=== PATIENT | female | born 1975 | race Caucasian/White ===

== ENCOUNTER 2020-10-06 05:59 | Inpatient (IN) ==
--- NOTE | 2020-10-02 10:46 | Anesthesiology Consultation ---
Date of Service October 02, 2020 Assessment & Plan (1) Encounter for pre-operative examination: - COVID screening: Per assessment on 10/02: Travel screen negative, no known COVID-19 positive contacts or current COVID-19 related symptoms. Preop COVID test done 10/02 ([place])- pending. - Leukocytosis: WBC significantly elevated at 26.76 on 10/01. Suspected by [place] ER that leukocytosis 2/2 recent steroid use for neck pain. Surgeon ordered recheck CBC 10/02 with persistent WBC elevation. Surgeon's office made aware and will be forwarding report to PCP for continuity of care. - C-spine imaging: C-spine MRI done 10/01 with findings noted in the "testing section." Patient had c-spine x-[facility] done 10/02 at [facility] but results still pending- anesthesiologist to review AM DOS. Chart Review Chart Review: Acceptable Risk for Surgery (pending evaluation AM DOS) and Patient NOT seen in Pre Admission Testing History Surgery Operation Date: 10/06/20 07:30 Proposed Procedures p Anterior Cervical Discectomy Fusion C4-C5, C5-C6, Autograft, Allograft, Spinal Cord Monitoring - Minal Hall MD Height/Weight Height: 5 ft 4 in Weight: 79.379 kg Allergies Allergy/AdvReac Type Severity Reaction Status Date / Time latex Allergy Mild Rash Verified 10/02/20 10:15 Iodinated Contrast Media AdvReac Severe Hives, Unverified 10/02/20 10:37 tongue swelling adhesive AdvReac Mild Rash Verified 10/02/20 10:15 GOLD AdvReac Mild Rash Uncoded 10/02/20 10:15 Medications Home Medications Medication Instructions Recorded Confirmed Last Taken albuterol sulfate 90 mcg/actuation 2 inh INHALATION Q6H PRN 10/02/20 10/02/20 Unknown breath activated powder inhaler cholecalciferol (vitamin D3) 50 50 mcg PO TID 10/02/20 10/02/20 Unknown mcg (2,000 unit) tablet clindamycin phosphate 1 % topical 1 applic TOPICAL BID 10/02/20 10/02/20 Unknown gel esomeprazole magnesium 40 mg 40 mg PO QAM 10/02/20 10/02/20 Unknown capsule,delayed release montelukast 10 mg tablet 10 mg PO QAM 10/02/20 10/02/20 Unknown multivitamin 1 tab PO QAM 10/02/20 10/02/20 Unknown oxycodone-acetaminophen 5 mg-325 1 tab PO Q4H PRN #15 tab 10/02/20 10/02/20 Unknown mg tablet trazodone 50 - 100 mg PO HS 10/02/20 10/02/20 Unknown venlafaxine 75 mg capsule,extended 75 mg PO QAM 10/02/20 10/02/20 Unknown release 24 hr Past Medical History Medical History Anxiety Asthma Bladder prolapse GERD (gastroesophageal reflux disease) Herniated cervical disc History of kidney stones Hx of endometriosis Migraine Restless leg syndrome Seasonal allergies Temporomandibular joint disorder Jaw locking x1 episode (after dental appt) Past Family History Family History Other No family history of adverse response to anesthesia Past Surgical History Surgical History History of colonoscopy History of cystoscopy History of dilatation and curettage Multiple History of esophagogastroduodenoscopy (EGD) History of hysterectomy History of laparoscopy History of lithotripsy History of sinus surgery x3 [place] teeth removed Social History Smoking Status: Former smoker tobacco type: cigarettes and e-cigarettes (vaping (current)) Do You Dip or Chew Tobacco: No Smoking End Date: Quit 7 years ago Hx Alcohol Use: No Hx Substance Use: No substance use type: does not use Lab Results Anesthesia Preop Results Results Anesthesia Widget: WBC 25.40 K/uL (4.8-10.8) H 10/02/20 Hgb 14.3 g/dL (12.0-16.0) 10/02/20 Hct 43.7 % (37-47) 10/02/20 Plt 323 K/uL (130-400) 10/02/20 Na 138 mmol/L (136-145) 10/01/20 K 4.6 mmol/L (3.5-5.1) 10/01/20 Cl 107 mmol/L (98-107) 10/01/20 CO2 25 mmol/L (21-32) 10/01/20 BUN 13 mg/dl (7-18) 10/01/20 Creat 1.02 mg/dl (0.6-1.2) 10/01/20 Glucose Level 119 mg/dl (70-99) H 10/01/20 Blood Type O Positive 10/02/20 Antibody Screen NEGATIVE 10/02/20 Lab Comments: Leukocytosis: WBC significantly elevated at 26.76 on 10/01. Suspected by [place] ER that leukocytosis 2/2 recent steroid use for neck pain. Surgeon ordered recheck CBC 10/02 with persistent WBC elevation. Surgeon's office made aware and will be forwarding report to PCP for continuity of care. Slight hemolysis: on 10/01 BMP- at anesthesiologist discretion AM DOS if recheck needed. Testing Other Testing C-spine MRI (10/01/20): C2-3: There is no evidence of disc bulge or focal herniation. There is no spinal or foraminal stenosis. C3-4: Mild central canal narrowing. Bilateral neuroforamina are patent. C4-5: Posterior osteophytes. Moderate stenosis of the central canal possible sev ere stenosis of bilateral neuroforamina. C5-6 :Posterior osteophytes. Moderate to severe stenosis of the central canal and bilateral neuroforamina. C6-7: Mild stenosis of the central canal and bilateral neuroforamina. C7-T1: There is no evidence of disc bulge or focal herniation. There is no evidence of spinal or foraminal stenosis. No evidence of abnormal enhancement after intravenous contrast administration. Impression: Multilevel degenerative changes as detailed above with central canal stenosis by posterior osteophytes and disc bulges. Evaluation is limited due to motion artifact. No evidence of abnormal enhancement after intravenous contrast administration.
[2020-10-06] MEDS ORDERED: LR 15ML/HR IV SCH (06:00)
[2020-10-06] MEDS ORDERED: ceFAZolin 2000MG 2,000 MG/15 ML SYR IV SCH (06:00)
[2020-10-06] MEDS ORDERED: LR 60ML/HR IV SCH (06:00)
[2020-10-06] MEDS ORDERED: MIDAZOLAM HCL 1 MG/ML 2ML VIAL ONE (06:49)
[2020-10-06] MEDS ORDERED: fentaNYL citrate 100 MCG/2 ML VIAL ONE ×2 (06:50→10:04)
[2020-10-06] MEDS ORDERED: PROPOFOL IV EMULSION 10 MG/ML 100 ML VIAL IV ONE ×2 (06:51→06:57)
[2020-10-06] MEDS ORDERED: REMIFENTANIL HCL 1 MG VIAL ONE ×4 (06:51→10:34)
[2020-10-06] MEDS ORDERED: PROPOFOL IV EMULSION 10 MG/ML 20 ML VIAL IV ONE (06:51)
[2020-10-06] MEDS ORDERED: SUCCINYLCHOLINE CHLORIDE 20 MG/ML 10 ML VIAL IV ONE (06:51)
[2020-10-06] MEDS ORDERED: ACETAMINOPHEN 1000 MG/100 ML IV IV ONE (06:57)
[2020-10-06] MEDS ORDERED: SCOPOLAMINE 1 MG TDSY TD ONE (06:58)
[2020-10-06] MEDS ORDERED: FAMOTIDINE/PF 20 MG/2 ML VIAL IV ONE (06:59)
[2020-10-06] MEDS ORDERED: PROMETHAZINE HCL 12.5 MG in SODIUM CHLORIDE 0.9% 50 ML IV PRN ×2 (07:13→15:01)
[2020-10-06] MEDS ORDERED: HYDROmorphone INJ 2 MG/ML SYR/VIAL IV PRN (07:13)
[2020-10-06] MEDS ORDERED: METOCLOPRAMIDE HCL INJ 5 MG/ML 2 ML VIAL IV PRN ×2 (07:13→15:01)
[2020-10-06] MEDS ORDERED: ATROPINE SULFATE 0.1 MG/ML 10ML SYR IV PRN (07:13)
[2020-10-06] MEDS ORDERED: ePHEDrine sulfate 50 MG/ML AMP IV PRN (07:13)
[2020-10-06] MEDS ORDERED: ONDANSETRON INJ 2 MG/ML 2 ML VIAL IV PRN ×2 (07:13→15:01)
--- NOTE | 2020-10-06 07:16 | History & Physical Bridge Note ---
Date of Service October 06, 2020 History & Physical Bridge Note I have examined the patient, reviewed the History & Physical and in the interval since the performance of the History & Physical I have noted the following changes of clinical significance: no changes noted New changes compared to last appointment: patient has not taken any analgesics this AM and has more pain inhibition of the left lower extremity with motor examination with pain in neck, left shoulder with resisted motor testing. Musculoskeletal: 5/5 motor strength right C5-T1, L2-S1 motor left C5 2/5 C6 2/5 C7 4/5 (pain inhibited) C8 4+/5 (pain inhibited) T1 4+/5 (pain inhibited) L2 4+/5 (pain inhibited) L3 4+/5 (pain inhibited) L4 4+/5 (pain inhibited) L5 4+/5 (pain inhibited) S1 4+/5 (pain inhibited) Neurologic: Sensation 2/2 to light touch bilateral C5-T1, L2-S1 except left C5 and C6 1/2. Patient marked for surgery. All new questions about procedure answered. Informed consent confirmed
[2020-10-06] MEDS ORDERED: THROMBIN 5000 UNITS KIT ONE (07:27)
[2020-10-06] MEDS ORDERED: GELATIN SPONGE SZ 100 ONE (07:27)
[2020-10-06] MEDS ORDERED: DEXAMETHASONE SOD INJ 4 MG/ML VIAL ONE (08:31)
[2020-10-06] MEDS ORDERED: HYDROmorphone INJ 1 MG/ML SYRINGE ONE ×2 (08:33→10:04)
[2020-10-06] MEDS ORDERED: LABETALOL HCL IV 5 MG/ML 20ML IV ONE (09:08)
[2020-10-06] MEDS ORDERED: FLOSEAL HEMOSTATIC MATRIX 10ML TOP ONE (11:00)
--- NOTE | 2020-10-06 12:43 | XRay Report ---
XR cervical spine 1V CLINICAL HISTORY: ACDF C4-6 COMPARISON STUDY: No previous studies for comparison. FINDINGS: 13 intraoperative radiographs are provided for interpretation. The images were obtained for localizat ion purposes by . The final images demonstrate postsurgical changes of an anterior discect bonnie and fusion at the C4-C6 level. IMPRESSION: 1. Intraoperative radiographs demonstrating postsurgical changes of a C4-C6 anterior cervical discect bonnie and fusion ACT 112: Negative or not required by law. Electronically signed by: Jack Crain M.D. 10/06/2020 12:42 PM
--- NOTE | 2020-10-06 12:52 | Post Operative Brief Note ---
PG Immediate Post Op with CF Date of Surgery October 06, 2020 Pre & Post Diagnosis Operation Date: 10/06/20 07:30 Pre-Op Diagnosis: Cervical radiculopathy left C5 and C6 Post-Op Diagnosis: Cervical radiculopathy left C5 and C6 I identified the patient and participated in the time-out.: Yes Procedure Anterior Cervical Discectomy and Fusion C4-C5, C5-C6, Local Autograft, Allograft Surgeon Minal Hall MD Dragline Engineer Primitivo Contreras PA-C Estimated Blood Loss 25 Findings Consistent with Post-Op Diagnosis Specimens Specimen Description: None per surgeon Drains Peralta Catheter and Paul-Sears Drain (10fr)
[2020-10-06] MEDS: fentaNYL citrate 100 MCG/2 ML VIAL IV PRN ×2 (13:45→13:50)
--- NOTE | 2020-10-06 13:55 | Anesthesiology Progress Note ---
Date of Service October 06, 2020 Anesthesia Post Procedure Vital Signs Vital Signs: Temp Pulse Pulse Resp BP Pulse Ox 10/06/20 13:40 107 H 10 L 142/89 H 97 10/06/20 13:30 104 H 17 136/92 98 10/06/20 13:20 107 H 13 138/89 98 10/06/20 13:10 36.3 C L 114 H 12 125/82 98 10/06/20 13:01 36.3 C L 111 H 16 145/80 H 99 10/06/20 06:24 37.2 C 98 H 18 116/94 97 Pain Intensity Left Shoulder: Pain Intensity: 0 Transfer of Care Handoff Completed per policy Notes Mental Status: alert / awake / arousable and participated in evaluation Patient Amnestic to Procedure: Yes Nausea / Vomiting: adequately controlled Pain: adequately controlled Airway Patency, RR, SpO2: stable & adequate BP & HR: stable & adequate Hydration State: stable & adequate Anesthetic Complications: no major complications apparent
[2020-10-06] MEDS ORDERED: dexAMETHasone 8 MG in SYRINGE 0 ML IV PRN (15:01)
[2020-10-06] MEDS ORDERED: LORazepam 0.5 MG TAB PO PRN (15:01)
[2020-10-06] MEDS ORDERED: FAMOTIDINE 20 MG TAB PO PRN (15:01)
[2020-10-06] MEDS ORDERED: LACTATED RINGER'S 1,000 ML IV SCH (15:01)
[2020-10-06] MEDS ORDERED: RACEPINEPHRINE 2.25% NEBU SOLN 0.5 ML VIAL INH PRN (15:01)
[2020-10-06] MEDS ORDERED: DO NOT ADMINISTER PNEUMOCOCCAL VACCINE PRN (15:01)
[2020-10-06] MEDS ORDERED: ALUMINUM/MAGNESIUM SUSP 30 ML UDC PO PRN (15:01)
[2020-10-06] MEDS ORDERED: ACETAMINOPHEN 1,000 MG/100 ML VIAL IV PRN (15:01)
[2020-10-06] MEDS ORDERED: SOD PHOSPHATE/SOD BIPHOSPHATE ENEMA 132 ML BTL PR PRN (15:01)
[2020-10-06] MEDS ORDERED: NALOXONE HCL 0.4 MG/1 ML VIAL/CARP IV PRN (15:01)
[2020-10-06] MEDS ORDERED: ACETAMINOPHEN 500 MG TAB PO PRN (15:01)
[2020-10-06] MEDS ORDERED: DO NOT ADMINISTER FLU VACCINE PRN (15:01)
[2020-10-06] MEDS ORDERED: diphenhydrAMINE Capsule 25 MG CAP PO PRN (15:01)
[2020-10-06] MEDS ORDERED: LORazepam 0.5 MG/1 ML VIAL IV PRN (15:01)
[2020-10-06] MEDS ORDERED: MAGNESIUM HYDROXIDE SUSP 30 ML UDC PO PRN (15:01)
[2020-10-06] MEDS ORDERED: hydrOXYzine HCl 25 MG TAB PO PRN (15:01)
[2020-10-06] MEDS ORDERED: ONDANSETRON 4 MG OD TAB PO PRN (15:01)
[2020-10-06] MEDS ORDERED: ALBUTEROL HFA 8 GM INHALER INH PRN (15:07)
[2020-10-06] MEDS: HYDROmorphone INJ 0.5 MG/0.5 ML SYR IV PRN ×2 (15:31→19:08)
[2020-10-06] MEDS: ceFAZolin 2000MG 2,000 MG/15 ML SYR IV SCH ×2 (16:06→23:56)
[2020-10-06] MEDS: CYCLOBENZAPRINE HCL 10 MG TAB PO SCH ×2 (16:06→22:19)
--- NOTE | 2020-10-06 16:33 | Hospitalist Consultation ---
Date of Consultation October 06, 2020 Assessment & Plan (1) Left cervical radiculopathy: Mrs. Franklin is a 45 year old female with a history of Asthma, Anxiety, and Cervical Degenerative Disc Disease with Left Cervical Radiculopathy who is POD#0 from an ACDF at C4-C5, C5-C6. Her radicular symptoms are much better following her 2 level ACDF, but she still has some surgical soreness and her neck still hurts. 1. Continue cervical collar. 2. IV Acetaminophen. 3. IV Dexamethasone. 4. IV Dilaudid as needed. 5. Percocet as needed. 6. DVT prophylaxis as per surgeon. (2) Leukocytosis: Patient has not symptoms suggestive of infectious process. Strongly suspect that her leukocytosis is secondary to corticosteroid use over the past 2-3 weeks. -- Monitor CBC with diff. -- Recommend repeat CBC with diff as an outpatient about 4 to 6 weeks corticos teroids are discontinued. -- No further evaluation is necessary at this time. (3) Asthma: Her Asthma is very well controlled. -- Continue Albuterol HFA 2 puffs inhaled every 4 hours as needed. -- Continue Singulair 10 mg daily. (4) Anxiety: Continue venlafaxine (5) DVT prophylaxis: SCDs Disposition-hospitalist service will continue to follow along Supervising Physician Co-Signing Physician Notes PA Supervision Note: I personally saw and examined the patient. I verified all morrell points and agree with SISSY Rodriguez with the following exceptions and/or additions: 'Patient seen postoperatively and she is doing well, remains on 2 L nasal cannula but denies any shortness of breath or cough. No wheezing. No chest pain or nausea. She is having some pain in the neck. History and ROS reviewed Vitals reviewed Gen: AAOx3, NAD HEENT: Anicteric sclerae, EOMI, neck in Franklin J collar CV: RRR no mgr nl S1S2 Pulm: CTAB no wcr Abd: +BS soft NT ND no masses or hernias Ext: No edema, no calf tenderness Skin: No rashes, warm/dry Neuro: Full strength throughout Laboratory values reviewed 45-year-old female here with cervical spine anterior discectomy and fusion, with asthma, anxiety, and leukocytosis. While WBC count is fairly significant at 20 5K, is all neutrophilia and is most likely secondary to recent steroid use. Follow CBC daily while here although she continues on IV dexamethasone here There is no evidence of infection, fever, no urinary symptoms but will check UA given recent instrumentation and surgery. -Can wean off oxygen as she has no respiratory distress or wheezing and she is with pulse ox 95% on 2 L nasal cannula History of Present Illness Reason for Consultation: -- Postop Medical Management. -- Leukocytosis. -- Asthma. Requesting Physician: Minal Hall MD Attending Physician: Lauren Anthony MD History of Present Illness Mrs. Franklin is a 45 year old female with a history of Asthma, Anxiety, and Cervical Degenerative Disc Disease with Left Cervical Radiculopathy who is POD#0 from an ACDF at C4-C5, C5-C6. Patient initially developed neck pain with pain radiating into her left arm and weakness of the LUE on roughly 09/17/20 and thereafter started experiencing worsening radicular symptoms that wear intolerable. She had seen a chiropractor, and had been prescribed Prednisone, Naproxen, Percocet, and Flexeril in order to manage her symptoms. She presented to [facility] ER on 10/01/20, had an MRI of the C-spine, and was given IV Dexamethasone and IV Dilaudid. C-SPINE MRI 10/01/20: There are no suspicious areas of marrow replacement. No intrinsic cervical cord lesions are visualized. Multilevel degenerative changes with posterior osteophytes are seen. Evaluation is significantly limited due to motion artifact. C2-3: There is no evidence of disc bulge or focal herniation. There is no spinal or foraminal stenosis. C3-4: Mild central canal narrowing. Bilateral neuroforamina are patent. C4-5: Posterior osteophytes. Moderate stenosis of the central canal possible severe stenosis of bilateral neuroforamina. C5-6 :Posterior osteophytes. Moderate to severe stenosis of the central canal and bilateral neuroforamina. C6-7: Mild stenosis of the central canal and bilateral neuroforamina. C7-T1: There is no evidence of disc bulge or focal herniation. There is no evidence of spinal or foraminal stenosis. No evidence of abnormal enhancement after intravenous contrast administration. IMPRESSION: 1. Multilevel degenerative changes as detailed above with central canal stenosis by posterior osteophytes and disc bulges. Evaluation is limited due to motion artifact. 2. No evidence of abnormal enhancement after intravenous contrast administration. ER physician contacted Dr. Hall, and patient evaluated by Dr. Hall on 10/02/20 -- spine surgeon recommended surgical intervention. Patient offers no complaints at this time. She still has some soreness in her neck, but symptoms down her left arm and into her left thumb are no longer present. She denies any radiating pain. She denies any numbness, tingling, or weakness of either upper extremity or her hands. Patient has not had any difficulty swallowing. She feels well otherwise. No postoperative nausea or vomiting. Patient has not had any recent infectious symptoms. She specifically denies any fevers, chills, cough, sputum production, urinary frequency, urinary urgency, or dysuria. She has not had any skin lesions or sores. As for her history asthma, she had significantly more symptoms as a child. As an adult she rarely experiences asthmatic symptoms or exaceerbations. Allergies Allergy/AdvReac Type Severity Reaction Status Date / Time latex Allergy Mild Rash Verified 10/06/20 06:07 Iodinated Contrast Media AdvReac Severe Hives, Verified 10/06/20 06:07 tongue swelling adhesive AdvReac Mild Rash Verified 10/06/20 06:07 GOLD AdvReac Mild Rash Uncoded 10/02/20 10:15 Home Medications Medication Instructions Recorded Confirmed Type albuterol sulfate 90 mcg/actuation 2 inh INHALATION Q6H PRN 10/02/20 10/06/20 History breath activated powder inhaler cholecalciferol (vitamin D3) 50 50 mcg PO TID 10/02/20 10/06/20 History mcg (2,000 unit) tablet clindamycin phosphate 1 % topical 1 applic TOPICAL BID 10/02/20 10/06/20 History gel esomeprazole magnesium 40 mg 40 mg PO QAM 10/02/20 10/06/20 History capsule,delayed release montelukast 10 mg tablet 10 mg PO QAM 10/02/20 10/06/20 History multivitamin 1 tab PO QAM 10/02/20 10/06/20 History oxycodone-acetaminophen 5 mg-325 1 tab PO Q4H PRN #15 tab 10/02/20 10/06/20 Rx mg tablet trazodone 50 - 100 mg PO HS 10/02/20 10/06/20 History venlafaxine 75 mg capsule,extended 75 mg PO QAM 10/02/20 10/02/20 History release 24 hr venlafaxine [Effexor XR] 75 mg PO QAM 10/06/20 10/06/20 History Patient History Medical History Anxiety Asthma Bladder prolapse GERD (gastroesophageal reflux disease) Herniated cervical disc History of kidney stones Hx of endometriosis Migraine Restless leg syndrome Seasonal allergies Temporomandibular joint disorder Jaw locking x1 episode (after dental appt) Surgical History History of colonoscopy History of cystoscopy History of dilatation and curettage Multiple History of esophagogastroduodenoscopy (EGD) History of hysterectomy History of laparoscopy History of lithotripsy History of sinus surgery x3 [place] teeth removed Family History Other No family history of adverse response to anesthesia Social History Smoking Status: Former smoker Tobacco Type: Cigarettes Smoking End Date: Quit 7 years ago; Number of Years Since Quit: 8; Second Hand Exposure: Yes; Do You Dip or Chew Tobacco: No; Tobacco Cessation Education Requested by Patient: No Hx Alcohol Use: No Hx Substance Use: No Preferred Language: Croatian Communication Ability: Effective Endocrinologist Required: No Beliefs That Will Affect Care: None marital status: Current Living Situation: Family current occupational status: employed Feels Safe at Home: Yes Safety Concerns: Feels Safe At This Time Assistive Devices: Glasses and Hearing Aid - Bilateral Review of Systems Review of Systems: All systems reviewed & are unremarkable except as noted in Subjective Physical Exam Physical Exam: GENERAL: Patient in no acute distress. HEENT: Head is atraumatic, normocephalic. EOM's intact. Facies symmetric. No perioral cyanosis. NECK: Cervical collar in place, surgical drain present. CHEST/LUNGS: Clear to auscultation throughout all lung vazquez. No wheezes, rales, or crackles. CVS: S1 and S2 are regular without obvious murmurs, gallops, or rubs. PMI is nondisplaced. No lifts, heaves, or thrills. No abdominal aortic or renal bruits. ABDOMINAL EXAM: Bowel sounds are present. No masses, organomegaly, or tenderne ss. EXTREMITIES: No clubbing or cyanosis. No edema. Intact posterior tibial and radial pulses bilaterally. NEUROLOGIC EXAM: Patient is awake, alert, and oriented. Pleasant and cooperative. Answers questions appropriately. Speech is clear. Sensation intact to light touch over bilateral upper and lower extremities. Results & Data Results & Data ([facility]) Vital Signs (Past 12 Hours) Vital Signs Temp Pulse Pulse Resp BP Pulse Ox 10/06/20 15:35 37.1 C 108 H 18 122/85 96 10/06/20 15:10 111 H 18 125/84 97 10/06/20 15:00 76 16 97 10/06/20 14:30 37.2 C 106 H 18 131/86 97 10/06/20 13:50 36.7 C 108 H 13 135/83 96 10/06/20 13:40 107 H 10 L 142/89 H 97 10/06/20 13:30 104 H 17 136/92 98 10/06/20 13:20 107 H 13 138/89 98 10/06/20 13:10 36.3 C L 114 H 12 125/82 98 10/06/20 13:01 36.3 C L 111 H 16 145/80 H 99 10/06/20 06:24 37.2 C 98 H 18 116/94 97 Laboratory Results Laboratory Results - last 24 hr 10/06/20 10/06/20 06:28 06:28 COVID-19 Eval Order Covid19 [facility]Now [facility] SARS-CoV-2, RNA, NAAT NEGATIVE Diagnostic Findings MRI C-SPINE 10/01/20: There are no suspicious areas of marrow replacement. No intrinsic cervical cord lesions are visualized. Multilevel degenerative changes with posterior osteophytes are seen. Evaluation is significantly limited due to motion artifact. C2-3: There is no evidence of disc bulge or focal herniation. There is no spinal or foraminal stenosis. C3-4: Mild central canal narrowing. Bilateral neuroforamina are patent. C4-5: Posterior osteophytes. Moderate stenosis of the central canal possible severe stenosis of bilateral neuroforamina. C5-6 :Posterior osteophytes. Moderate to severe stenosis of the central canal and bilateral neuroforamina. C6-7: Mild stenosis of the central canal and bilateral neuroforamina. C7-T1: There is no evidence of disc bulge or focal herniation. There is no evidence of spinal or foraminal stenosis. No evidence of abnormal enhancement after intravenous contrast administration. IMPRESSION: 1. Multilevel degenerative changes as detailed above with central canal richard nosis by posterior osteophytes and disc bulges. Evaluation is limited due to motion artifact. 2. No evidence of abnormal enhancement after intravenous contrast administration. CT SCAN C-SPINE 10/02/20: No prevertebral edema. Unremarkable soft tissues. The lung apices are clear without pneumothorax. No acute fracture, subluxation, suspicious bone lesion or endplate erosion. Reversal the normal cervical lordosis with slight kyphosis centered at C5. Multilevel intervertebral disc space narrowing with spondylitic spurring and mild facet arthrosis as below. Please note that evaluation of the central canal and neuroforamina is better assessed by MRI. C2-C3: Mild uncovertebral spurring and facet arthrosis. No central canal or neuroforaminal narrowing. C3-C4: Mild uncovertebral spurring and facet arthrosis. Tiny posterior annular disc bulge. No central canal or neuroforaminal narrowing. C4-C5: Mild intervertebral disc space narrowing with uncovertebral spurring, posterior annular disc bulge with posterior disc osteophyte complex. Mild facet arthrosis. No significant central canal stenosis. Mild to moderate right with moderate left neural foraminal narrowing. C5-C6: Mild intervertebral disc space narrowing with uncovertebral spurring, posterior annular disc bulge with posterior disc osteophyte complex. Mild facet arthrosis. No significant central canal stenosis. Mild to moderate bilateral neural foraminal narrowing. C6-C7: Mild intervertebral disc space narrowing with uncovertebral spurring and small posterior disc osteophyte complex with mild facet arthrosis. No significant central canal stenosis. Mild right foraminal narrowing. The left neural foramen appears patent. C7-T1: Mild facet arthrosis. No central canal or neuroforaminal narrowing. IMPRESSION: 1. No acute fracture or subluxation. 2. Mild multilevel intervertebral disc space narrowing with uncovertebral spurring, posterior disc osteophyte complex formations with facet arthrosis. 3. No high-grade central canal or neural foraminal narrowing identified. Medications Administered Medications albuterol sulfate 90 mcg/actuation breath activated powder inhaler 2 inh INHALATION Q6H PRN 10/02/20 [History Confirmed 10/06/20] cholecalciferol (vitamin D3) 50 mcg (2,000 unit) tablet 50 mcg PO TID 10/02/20 [History Confirmed 10/06/20] clindamycin phosphate 1 % topical gel 1 applic TOPICAL BID 10/02/20 [History Confirmed 10/06/20] esomeprazole magnesium 40 mg capsule,delayed release 40 mg PO QAM 10/02/20 [History Confirmed 10/06/20] montelukast 10 mg tablet 10 mg PO QAM 10/02/20 [History Confirmed 10/06/20] multivitamin 1 tab PO QAM 10/02/20 [History Confirmed 10/06/20] oxycodone-acetaminophen 5 mg-325 mg tablet 1 tab PO Q4H PRN #15 tab 10/02/20 [Rx Confirmed 10/06/20] trazodone 50 - 100 mg PO HS 10/02/20 [History Confirmed 10/06/20] venlafaxine 75 mg capsule,extended release 24 hr 75 mg PO QAM 10/02/20 [History Confirmed 10/02/20] venlafaxine [Effexor XR] 75 mg PO QAM 10/06/20 [History Confirmed 10/06/20] Home Medications Acetaminophen (Acetaminophen 500 Mg Tab) 1,000 mg PO Q8H PRN PRN Reason: MILD Pain Scale 1,2,3 & Pre PT Stop: 11/05/20 15:00 Al Hydrox/Mg Hydrox/Simethicone (Aluminum/Magnesium Susp 30 Ml Udc) 30 ml PO Q6H PRN PRN Reason: Dyspepsia Stop: 11/05/20 15:00 Albuterol (Albuterol Hfa 8 Gm Inhaler) 2 puffs INH Q6H PRN PRN Reason: SHORT OF BREATH Stop: 11/05/20 15:06 Bisacodyl (Bisacodyl 10 Mg Supp) 10 mg IA DAILY PRN PRN Reason: Constipation Stop: 11/07/20 07:59 Cyclobenzaprine HCl (Cyclobenzaprine Hcl 10 Mg Tab) 10 mg PO Q8 CYNTHIA Stop: 11/05/20 15:59 Last Admin: 10/06/20 16:06 Dose: 10 mg Documented by: Diphenhydramine HCl (Diphenhydramine Capsule 25 Mg Cap) 25 mg PO Q6H PRN PRN Reason: Allergic Rhinitis/Insomnia Stop: 11/05/20 15:00 Epinephrine (Racepinephrine 2.25% Nebu Soln 0.5 Ml Vial) 0.5 ml INH NOW PRN PRN Reason: if stridor present Famotidine (Famotidine 20 Mg Tab) 20 mg PO Q12H PRN PRN Reason: Dyspepsia Stop: 11/05/20 15:00 Gabapentin (Gabapentin 300 Mg Cap) 300 mg PO BID CYNTHIA Stop: 11/05/20 20:59 Hydromorphone HCl (Hydromorphone Inj 0.5 Mg/0.5 Ml Syr) 0.5 mg IV Q3H PRN PRN Reason: MOD pain (scale 4-6) & Pre PT Stop: 10/20/20 15:00 Last Admin: 10/06/20 15:31 Dose: 0.5 mg Documented by: Hydroxyzine HCl (Hydroxyzine Hcl 25 Mg Tab) 25 mg PO Q8H PRN PRN Reason: Anxiety Stop: 11/05/20 15:00 Dexamethasone 8 mg/ Syringe 2 mls @ 1 mls/min IV NOW PRN PRN Reason: stridor Lactated Ringer's (Lr) 1,000 mls @ 100 mls/hr IV .Q10H CYNTHIA Stop: 11/05/20 15:00 Last Admin: 10/06/20 15:34 Dose: 100 mls/hr Documented by: Acetaminophen (Ofirmev) 1,000 mg in 100 mls @ 400 mls/hr IV Q8H PRN PRN Reason: Pain Rating 1-3 & Pre PT Stop: 10/07/20 12:53 Lorazepam (Ativan) 0.5 mg in 1 mls @ 1 mls/min IV Q8H PRN PRN Reason: Sedation/Anxiety Stop: 11/05/20 15:00 Cefazolin Sodium (Ancef 2000mg) 2,000 mg in 15 mls @ 3.75 mls/min IV Q8H CYNTHIA; Protocol Stop: 10/07/20 00:03 Last Admin: 10/06/20 16:06 Dose: 3.75 mls/min Documented by: Promethazine HCl 12.5 mg/ (Sodium Chloride) 50.5 mls @ 202 mls/hr IV Q6H PRN PRN Reason: Nausea &/or Vomiting Stop: 11/05/20 15:00 Influenza Virus Vaccine Quadrival (Do Not Administer Flu Vaccine) 1 ea N/A PRN PRN PRN Reason: Notification Stop: 11/05/20 15:00 Lorazepam (Lorazepam 0.5 Mg Tab) 0.5 mg PO Q8H PRN PRN Reason: sedation/anxiety Stop: 11/05/20 15:00 Magnesium Hydroxide (Magnesium Hydroxide Susp 30 Ml Udc) 30 ml PO Q24H PRN PRN Reason: Constipation Stop: 11/05/20 15:00 Metoclopramide HCl (Metoclopramide Hcl Inj 5 Mg/Ml 2 Ml Vial) 10 mg IV Q6H PRN PRN Reason: Nausea &/or Vomiting Stop: 11/05/20 15:00 Montelukast Sodium (Montelukast Sodium 10 Mg Tablet) [facility] [place] Stop: 11/06/20 08:59 Multivitamins (Multivitamin Tab) [facility] [place] Stop: 11/06/20 08:59 Naloxone HCl (Naloxone Hcl 0.4 Mg/1 Ml Vial/Carp) 0.1 mg IV Q5M PRN PRN Reason: Oversedation/respiratory dep Stop: 11/05/20 15:00 Ondansetron HCl (Ondansetron Inj 2 Mg/Ml 2 Ml Vial) 4 mg IV Q6H PRN PRN Reason: Nausea &/or Vomiting Stop: 11/05/20 15:00 Ondansetron HCl (Ondansetron 4 Mg Od Tab) 4 mg PO Q6H PRN PRN Reason: Nausea Stop: 11/05/20 15:00 Oxycodone/Acetaminophen (Oxycodone/Acetaminophen 5mg/325mg Tab) 1 - 2 tab PO Q4H PRN PRN Reason: Pain & Pre PT Stop: 10/20/20 15:00 Pantoprazole Sodium (Pantoprazole 40 Mg Tab) [facility] [place] Stop: 11/06/20 08:59 Pneumococcal Polyvalent Vaccine (Do Not Administer Pneumococcal Vaccine) 1 ea N/A PRN PRN PRN Reason: Notification Stop: 11/05/20 15:00 Polyethylene Glycol (Polyethylene (Miralax) 17 Gm Pack) 17 gm PO Q6 CYNTHIA Stop: 11/06/20 05:59 Senna/Docusate Sodium (Docusate Sodium/Senna 50/8.6mg Tab) 2 tab PO HS CYNTHIA Stop: 11/05/20 20:59 Sodium Biphosphate/Sodium Phosphate (Sod Phosphate/Sod Biphosphate Enema 132 Ml Btl) 132 ml IA ONE PRN PRN Reason: Constipation Stop: 11/05/20 15:00 Venlafaxine HCl (Venlafaxine Hcl Xr 75 Mg Capxr) 75 mg PO QAM CYNTHIA Stop: 11/06/20 08:59 Vitamin D (Cholecalciferol 1,000 Units 25 Mcg Tab) 1,000 units PO TIDM CYNTHIA Stop: 11/05/20 16:59 PG Care Time/CCT Total # of Minutes Spent Total Time Spent with Patient: Total time spent is greater than 50% in coordination of care (as documented) at patient's floor/unit and/or counseling patient:35 Coding Level of Care Code 25621 Inpt Consult Level 4 Diagnoses Left cervical radiculopathy M54.12 Leukocytosis D72.829 Asthma J45.909 Anxiety F41.9 DVT prophylaxis Z29.9 Time Spent (min) 45
[2020-10-06] MEDS: CHOLECALCIFEROL 1,000 UNITS 25 MCG TAB PO SCH (17:32)
[2020-10-06] MEDS: DOCUSATE SODIUM/SENNA 50/8.6MG TAB PO SCH (19:51)
[2020-10-06] MEDS: GABAPENTIN 300 MG CAP PO SCH (19:52)
[2020-10-06] MEDS: oxyCODONE/ACETAMINOPHEN 5mg/325mg TAB PO PRN ×2 (19:54→23:55)
[2020-10-07 00:04] LABS: Appearance Urine Clear (Clear); Bacteria Urine Automated Negative (Negative); Bilirubin Urine Negative (Negative); Blood Urine Trace (Negative); Cast Urine Automated 0 /lpf (0-5); Color Urine Yellow; Glucose Urine UA Negative (Negative); Ketones Urine Negative (Negative); Leukocyte Esterase Urine Negative (Negative); Nitrite Urine Negative (Negative); Protein Urine Negative (Negative); RBC Urine Automated 0-4 /hpf (0-4); Specific Gravity Urine 1.007 (1.000-1.030); Urobilinogen Urine Negative (Negative); WBC Urine Automated 0 /hpf (0-5); pH Urine 7.5 (4.5-7.5)
[2020-10-07] MEDS: POLYETHYLENE (MIRALAX) 17 GM PACK PO SCH ×4 (05:39→20:22)
[2020-10-07] MEDS: CYCLOBENZAPRINE HCL 10 MG TAB PO SCH ×3 (05:40→20:21)
[2020-10-07] MEDS: oxyCODONE/ACETAMINOPHEN 5mg/325mg TAB PO PRN ×4 (06:37→20:20)
[2020-10-07 06:45] LABS: Basophils # (auto) 0.01 K/uL (0-0.2); Basophils % (auto) 0.1 %; Eosinophils # (auto) 0.01 K/uL (0-0.5); Eosinophils % (auto) 0.1 %; Hematocrit (blood only) 40.2 % (37-47); Hemoglobin 13.3 g/dL (12.0-16.0); Immature Granulocytes # (auto) 0.03 K/uL (0.00-0.02); Immature Granulocytes % (auto) 0.2 %; Lymphocytes # (auto) 1.51 K/uL (1.2-3.4); Lymphocytes % (auto) 9.9 %; Mean Corpuscular Hemoglobin 29.9 pg (25-34); Mean Corpuscular Hgb Conc 33.1 g/dL (32-36); Mean Corpuscular Volume 90.3 fL (80-100); Mean Platelet Volume 10.2 fL (7.4-10.4); Monocytes # (auto) 1.28 K/uL (0.11-0.59); Monocytes % (auto) 8.4 %; Neutrophils # (auto) 12.41 K/uL (1.4-6.5); Neutrophils % (auto) 81.3 %; Platelet Count 281 K/uL (130-400); RDW Coefficient of Variation 12.9 % (11.5-14.5); RDW Standard Deviation 42.7 fL (36.4-46.3); Red Blood Count 4.45 M/uL (4.2-5.4); White Blood Count 15.25 K/uL (4.8-10.8)
[2020-10-07 07:14] LABS: BUN Creatinine Ratio 14.4 (10-20); Calcium 9.2 mg/dl (8.5-10.1); Creatinine Clr Calc Pharmacy 83.7 ml/min; Est GFR (African American) 93.2 ml/min; Est GFR (Non-African American) 80.5 ml/min; Potassium 3.8 mmol/L (3.5-5.1)
--- NOTE | 2020-10-07 08:25 | Orthopedic Progress Note ---
Date of Service October 07, 2020 Assessment & Plan (1) Status post spinal surgery: drain to be removed possibly today (awaiting drain output) d/c home likely tomorrow Admission and Anticipated Discharge Date Admission Date: October 06, 2020 Subjective no new numbness/weakness, improved strength left upper extremity mild hoarseness of voice with throat pain no dysphagia. Drinking well/eating well pain well-controlled resolved radiation of pain to the left hand, reduced radiation of pain to the left shoulder Hgb 13.3 this AM Glucose 115 this AM Physical Exam Physical Exam: vitals: see vital signs section; on room air this am neck: soft, non-distended dressing: mild serosang discharge drain: 10 cc/8hr yesterday evening, not measured yet for this AM vascular: no calf tenderness or swelling bilaterally. no signs of DVT neuro: motor right upper and lower extremity C5-T1, L2-S1 5/5 motor left C5 3/5 C6 3/5 C7 4/5 (pain-inhibited) C8 4+/5 (pain-inhibited) T1 4+/5 (pain-inhibited) L2 5/5 L3 5/5 L4 5/5 L5 5/5 S1 5/5 2/2 sensation to light touch bilateral C5-T1, L2-S1 except left C5 1/2, C6 1/2. Results & Data ([facility]) Vital Signs (Past 12 Hours) Vital Signs Temp Pulse Resp BP Pulse Ox 10/07/20 07:27 36.7 C 95 H 16 131/90 97 10/07/20 07:08 81 20 99 10/07/20 05:42 95 10/07/20 05:37 36.7 C 89 16 133/87 96 10/07/20 03:30 36.6 C 102 H 16 132/89 95 10/07/20 02:22 111 H 12 95 10/07/20 01:31 102 H 16 130/87 93 10/07/20 01:30 36.5 C 10/06/20 23:30 37.0 C 108 H 18 137/89 93 10/06/20 23:04 115 H 16 96 10/06/20 21:30 37.2 C 110 H 18 141/85 H 97 Diagnostic Findings post-op x-ray cervical spine: hardware in acceptable alignment PG Care Time/CCT Total # of Minutes Spent Total Time Spent with Patient: Total time spent is greater than 50% in coordination of care (as documented) at patient's floor/unit and/or counseling patient: Coding Level of Care Code None Diagnoses Status post spinal surgery Z98.890
[2020-10-07] MEDS: CHOLECALCIFEROL 1,000 UNITS 25 MCG TAB PO SCH ×3 (08:41→17:10)
[2020-10-07] MEDS: PANTOprazole 40 MG TAB PO SCH (08:41)
[2020-10-07] MEDS: MONTELUKAST SODIUM 10 MG TABLET PO SCH (08:41)
[2020-10-07] MEDS: VENLAFAXINE HCL XR 75 MG CAPXR PO SCH (08:41)
[2020-10-07] MEDS: MULTIVITAMIN TAB PO SCH (08:41)
[2020-10-07] MEDS: GABAPENTIN 300 MG CAP PO SCH ×2 (08:41→20:21)
[2020-10-07] MEDS ORDERED: VENLAFAXINE HCL XR 75 MG CAPXR PO SCH (09:00)
--- NOTE | 2020-10-07 09:49 | XRay Report ---
CERVICAL SPINE 2 VIEWS CLINICAL HISTORY: Postoperative examination. Spinal fusion. FINDINGS: AP and lateral views of the cervical spine are compared to the study dated 10/06/2020. The e xamination is performed through a cervical spine collar. A surgical drain is seen within the preverte bral soft tissues. The skeletal structures are well mineralized. Vertebral body height and alignment are maintained throughout the cervical spine. There is straightening of the cervical lordosis. The sp inolaminar line is preserved. Mild productive degenerative change is noted at the atlantodental artic ulation. There is postoperative change from discectomy at C4-C5 and C5-C6 with anterior fusion from C 4-C6. The orthopedic hardware appears intact. The spinous processes are maintained. Anterior osteophy gerard are noted at C6-C7, and there is mild disc space narrowing at this level. Nonspecific prevertebra l soft tissue edema is likely related to recent surgery. There is no evidence of acute fracture or dugan bluxation. Multilevel facet arthropathy is suggested on the frontal view. Small posterior disc osteop hyte complexes are noted at C4-C5, C5-C6, and C6-C7. Apical lung parenchyma is clear as visualized. IMPRESSION: 1. No acute bony abnormality is seen involving the cervical spine. 2. Postoperative and mild spondylotic change as above. Dictated: 10/07/2020 9:18 AM Transcribed: 10/07/2020 9:24 AM Mary [id number] [email or web address] Electronically signed by: Dexter Chavarria M.D. 10/07/2020 9:48 AM
--- NOTE | 2020-10-07 10:55 | Hospitalist Progress Note ---
Date of Service October 07, 2020 Assessment & Plan (1) Left cervical radiculopathy: Mrs. Franklin is a 45 year old female with a history of Asthma, Anxiety, and Cervical Degenerative Disc Disease with Left Cervical Radiculopathy who is POD#1 from an ACDF at C4-C5, C5-C6. Her radicular symptoms are much better following her 2 level ACDF. She has some numbness/tingling sensation in her left thumb and forefinger but her left arm is feeling stronger overall. She also admits to mild hoarseness and a sore throat secondary to intubation -- however, she is eating and drinking without difficulty swallowing. Her surgical pain is well- controlled. The radiation of pain to the left hand is resolved, and she has reduced radiation of pain to the left shoulder/brachium. 1. Continue cervical collar. 2. IV Acetaminophen. 3. IV Dexamethasone. 4. IV Dilaudid as needed. 5. Percocet as needed. 6. DVT prophylaxis as per surgeon. (2) Leukocytosis: Patient has not symptoms suggestive of infectious process. Leukocytosis is secondary to corticosteroid use leading up to this hospitalization. -- Recommend repeat CBC with diff as an outpatient about 4 to 6 weeks corticosteroids are discontinued. -- Urine analysis 10/06/20 showed trace blood, but Negative for urine bacteria, nitrites, or leukocyte esterase. -- No further evaluation is necessary at this time. (3) Asthma: Her Asthma is very well controlled. -- Continue Albuterol HFA 2 puffs inhaled every 4 hours as needed. -- Continue Singulair 10 mg daily. Admission and Anticipated Discharge Date Admission Date: October 06, 2020 Supervising Physician Co-Signing Physician Notes Attending Attestation - Chart reviewed in detail, I agree w/ the morrell components of this progress note by SISSY Rodriguez. Vitals/labs remain stable & acceptable s/p cervical spine surgery. Venkata Escoto MD Subjective Mrs. Franklin is a 45 year old female with a history of Asthma, Anxiety, and Cervical Degenerative Disc Disease with Left Cervical Radiculopathy who is POD#1 from an ACDF at C4-C5, C5-C6. Her radicular symptoms are much better following her 2 level ACDF, but she still has some surgical soreness. She also has some numbness/tingling sensation in her left thumb and forefinger. Her left arm is feeling stronger. She also admits to mild hoarseness and a sore throat. She is eating and drinking without difficulty swallowing. Her surgical pain is well-controlled. Her radiation of pain to the left hand is resolved, and she has reduced radiation of pain to the left shoulder/brachium. Review of Systems Review of Systems: All systems reviewed & are unremarkable except as noted in Subjective Physical Exam Physical Exam: GENERAL: Patient in no acute distress. HEENT: Head is atraumatic, normocephalic. EOM's intact. Facies symmetric. No perioral cyanosis. NECK: Cervical collar in place, surgical drain present. CHEST/LUNGS: Clear to auscultation throughout all lung vazquez. No wheezes, rales, or crackles. CVS: S1 and S2 are regular without obvious murmurs, gallops, or rubs. PMI is nondisplaced. No lifts, heaves, or thrills. No abdominal aortic or renal bruits. ABDOMINAL EXAM: Bowel sounds are present. No masses, organomegaly, or tenderness. EXTREMITIES: No clubbing or cyanosis. No edema. Intact posterior tibial and radial pulses bilaterally. NEUROLOGIC EXAM: Patient is awake, alert, and oriented. Pleasant and cooperative. Answers questions appropriately. Speech is clear. Sensation intact to light touch over bilateral upper and lower extremities. Results & Data Results & Data ([facility]) Vital Signs (Past 12 Hours) Vital Signs Temp Pulse Resp BP Pulse Ox 10/07/20 09:40 104 H 16 133/84 97 10/07/20 07:27 36.7 C 95 H 16 131/90 97 10/07/20 07:08 81 20 99 10/07/20 05:42 95 10/07/20 05:37 36.7 C 89 16 133/87 96 10/07/20 03:30 36.6 C 102 H 16 132/89 95 10/07/20 02:22 111 H 12 95 10/07/20 01:31 102 H 16 130/87 93 10/07/20 01:30 36.5 C 10/06/20 23:30 37.0 C 108 H 18 137/89 93 10/06/20 23:04 115 H 16 96 Laboratory Results Laboratory Results - last 24 hr 10/06/20 10/07/20 10/07/20 23:44 06:16 06:16 WBC 15.25 H RBC 4.45 Hgb 13.3 Hct 40.2 MCV 90.3 MCH 29.9 MCHC 33.1 RDW Std Deviation 42.7 RDW Coeff of Elena 12.9 Plt Count 281 MPV 10.2 Immature Gran % (Auto) 0.2 Neut % (Auto) 81.3 Lymph % (Auto) 9.9 [place] % (Auto) 8.4 Eos % (Auto) 0.1 Baso % (Auto) 0.1 Neut # (Auto) 12.41 H Lymph # (Auto) 1.51 [place] # (Auto) 1.28 H Eos # (Auto) 0.01 Baso # (Auto) 0.01 Immature Gran # (Auto) 0.03 H Sodium 137 Potassium 3.8 Chloride 103 Carbon Dioxide 34 H Anion Gap 0 L BUN 12 Creatinine 0.87 Est Cr Clr Drug Dosing 83.7 Est GFR ( Amer) 93.2 Est GFR (Non-Af Amer) 80.5 BUN/Creatinine Ratio 14.4 Glucose 115 H Calcium 9.2 Urine Color Yellow Urine Appearance Clear Urine pH 7.5 Ur Specific [place] 1.007 Urine Protein Negative Urine Glucose (UA) Negative Urine Ketones Negative Urine Blood Trace H Urine Nitrite Negative Urine Bilirubin Negative Urine Urobilinogen Negative Ur Leukocyte Esterase Negative Urine WBC (Auto) 0 Urine RBC (Auto) 0-4 U Hyaline Cast (Auto) 0 U Epithel Cells (Auto) 5-10 H Urine Bacteria (Auto) Negative Medications Administered Medications albuterol sulfate 90 mcg/actuation breath activated powder inhaler 2 inh INHALATION Q6H PRN 10/02/20 [History Confirmed 10/06/20] cholecalciferol (vitamin D3) 50 mcg (2,000 unit) tablet 50 mcg PO TID 10/02/20 [History Confirmed 10/06/20] clindamycin phosphate 1 % topical gel 1 applic TOPICAL BID 10/02/20 [History Confirmed 10/06/20] esomeprazole magnesium 40 mg capsule,delayed release 40 mg PO QAM 10/02/20 [History Confirmed 10/06/20] montelukast 10 mg tablet 10 mg PO QAM 10/02/20 [History Confirmed 10/06/20] multivitamin 1 tab PO QAM 10/02/20 [History Confirmed 10/06/20] venlafaxine 75 mg capsule,extended release 24 hr 75 mg PO QAM 10/02/20 [History Confirmed 10/02/20] venlafaxine [Effexor XR] 75 mg PO QAM 10/06/20 [History Confirmed 10/06/20] cyclobenzaprine 10 mg PO Q8 #42 tab 10/07/20 [Rx] gabapentin 300 mg PO BID #28 cap 10/07/20 [Rx] oxycodone-acetaminophen [Percocet] 1 - 2 tab PO Q4H PRN #30 tab 10/07/20 [Rx] oxycodone-acetaminophen [Percocet] 1 tab PO Q4H #20 tab 10/07/20 [Rx] Home Medications Acetaminophen (Acetaminophen 500 Mg Tab) 1,000 mg PO Q8H PRN PRN Reason: MILD Pain Scale 1,2,3 & Pre PT Stop: 11/05/20 15:00 Al Hydrox/Mg Hydrox/Simethicone (Aluminum/Magnesium Susp 30 Ml Udc) 30 ml PO Q6H PRN PRN Reason: Dyspepsia Stop: 11/05/20 15:00 Albuterol (Albuterol Hfa 8 Gm Inhaler) 2 puffs INH Q6H PRN PRN Reason: SHORT OF BREATH Stop: 11/05/20 15:06 Bisacodyl (Bisacodyl 10 Mg Supp) 10 mg [place] DAILY PRN PRN Reason: Constipation Stop: 11/07/20 07:59 Cyclobenzaprine HCl (Cyclobenzaprine Hcl 10 Mg Tab) 10 mg PO Q8 CYNTHIA Stop: 11/05/20 15:59 Last Admin: 10/07/20 05:40 Dose: 10 mg Documented by: Diphenhydramine HCl (Diphenhydramine Capsule 25 Mg Cap) 25 mg PO Q6H PRN PRN Reason: Allergic Rhinitis/Insomnia Stop: 11/05/20 15:00 Epinephrine (Racepinephrine 2.25% Nebu Soln 0.5 Ml Vial) 0.5 ml INH NOW PRN PRN Reason: if stridor present Famotidine (Famotidine 20 Mg Tab) 20 mg PO Q12H PRN PRN Reason: Dyspepsia Stop: 11/05/20 15:00 Gabapentin (Gabapentin 300 Mg Cap) 300 mg PO BID CYNTHIA Stop: 11/05/20 20:59 Last Admin: 10/07/20 08:41 Dose: 300 mg Documented by: Hydromorphone HCl (Hydromorphone Inj 0.5 Mg/0.5 Ml Syr) 0.5 mg IV Q3H PRN PRN Reason: MOD pain (scale 4-6) & Pre PT Stop: 10/20/20 15:00 Last Admin: 10/06/20 19:08 Dose: 0.5 mg Documented by: Hydroxyzine HCl (Hydroxyzine Hcl 25 Mg Tab) 25 mg PO Q8H PRN PRN Reason: Anxiety Stop: 11/05/20 15:00 Dexamethasone 8 mg/ Syringe 2 mls @ 1 mls/min IV NOW PRN PRN Reason: stridor Acetaminophen (Ofirmev) 1,000 mg in 100 mls @ 400 mls/hr IV Q8H PRN PRN Reason: Pain Rating 1-3 & Pre PT Stop: 10/07/20 12:53 Lorazepam (Ativan) 0.5 mg in 1 mls @ 1 mls/min IV Q8H PRN PRN Reason: Sedation/Anxiety Stop: 11/05/20 15:00 Promethazine HCl 12.5 mg/ (Sodium Chloride) 50.5 mls @ 202 mls/hr IV Q6H PRN PRN Reason: Nausea &/or Vomiting Stop: 11/05/20 15:00 Influenza Virus Vaccine Quadrival (Do Not Administer Flu Vaccine) 1 ea N/A PRN PRN PRN Reason: Notification Stop: 11/05/20 15:00 Lorazepam (Lorazepam 0.5 Mg Tab) 0.5 mg PO Q8H PRN PRN Reason: sedation/anxiety Stop: 11/05/20 15:00 Last Admin: 10/07/20 09:47 Dose: 0.5 mg Documented by: Magnesium Hydroxide (Magnesium Hydroxide Susp 30 Ml Udc) 30 ml PO Q24H PRN PRN Reason: Constipation Stop: 11/05/20 15:00 Metoclopramide HCl (Metoclopramide Hcl Inj 5 Mg/Ml 2 Ml Vial) 10 mg IV Q6H PRN PRN Reason: Nausea &/or Vomiting Stop: 11/05/20 15:00 Montelukast Sodium (Montelukast Sodium 10 Mg Tablet) 10 mg PO [facility] Stop: 11/06/20 08:59 Last Admin: 10/07/20 08:41 Dose: 10 mg Documented by: Multivitamins (Multivitamin Tab) 1 tab PO QAM [facility] Stop: 11/06/20 08:59 Last Admin: 10/07/20 08:41 Dose: 1 tab Documented by: Naloxone HCl (Naloxone Hcl 0.4 Mg/1 Ml Vial/Carp) 0.1 mg IV Q5M PRN PRN Reason: Oversedation/respiratory dep Stop: 11/05/20 15:00 Ondansetron HCl (Ondansetron Inj 2 Mg/Ml 2 Ml Vial) 4 mg IV Q6H PRN PRN Reason: Nausea &/or Vomiting Stop: 11/05/20 15:00 Ondansetron HCl (Ondansetron 4 Mg Od Tab) 4 mg PO Q6H PRN PRN Reason: Nausea Stop: 11/05/20 15:00 Oxycodone/Acetaminophen (Oxycodone/Acetaminophen 5mg/325mg Tab) 1 - 2 tab PO Q4H PRN PRN Reason: Pain & Pre PT Stop: 10/20/20 15:00 Last Admin: 10/07/20 06:37 Dose: 2 tab Documented by: Pantoprazole Sodium (Pantoprazole 40 Mg Tab) 40 mg PO QAM [facility] Stop: 11/06/20 08:59 Last Admin: 10/07/20 08:41 Dose: 40 mg Documented by: Pneumococcal Polyvalent Vaccine (Do Not Administer Pneumococcal Vaccine) 1 ea N/A PRN PRN PRN Reason: Notification Stop: 11/05/20 15:00 Polyethylene Glycol (Polyethylene (Miralax) 17 Gm Pack) 17 gm PO Q6 CYNTHIA Stop: 11/06/20 05:59 Last Admin: 10/07/20 05:39 Dose: 17 gm Documented by: Senna/Docusate Sodium (Docusate Sodium/Senna 50/8.6mg Tab) 2 tab PO HS [facility] Stop: 11/05/20 20:59 Last Admin: 10/06/20 19:51 Dose: 2 tab Documented by: Sodium Biphosphate/Sodium Phosphate (Sod Phosphate/Sod Biphosphate Enema 132 Ml Btl) 132 ml [place] ONE PRN PRN Reason: Constipation Stop: 11/05/20 15:00 Venlafaxine HCl (Venlafaxine Hcl Xr 75 Mg Capxr) 75 mg PO QAM [facility] Stop: 11/06/20 08:59 Last Admin: 10/07/20 08:41 Dose: 75 mg Documented by: Vitamin D (Cholecalciferol 1,000 Units 25 Mcg Tab) 1,000 units PO TIDM [facility] Stop: 11/05/20 16:59 Last Admin: 10/07/20 08:41 Dose: 1,000 units Documented by: PG Care Time/CCT Total # of Minutes Spent Total Time Spent with Patient: Total time spent is greater than 50% in coordination of care (as documented) at patient's floor/unit and/or counseling patient:25 Coding Level of Care Code 84354 Subseq Hosp Care Lvl 3 Diagnoses Left cervical radiculopathy M54.12 Leukocytosis D72.829 Asthma J45.909 Time Spent (min) 35
[2020-10-07] MEDS: DOCUSATE SODIUM/SENNA 50/8.6MG TAB PO SCH (20:21)
[2020-10-08] MEDS: CYCLOBENZAPRINE HCL 10 MG TAB PO SCH (05:07)
[2020-10-08] MEDS: POLYETHYLENE (MIRALAX) 17 GM PACK PO SCH (05:07)
[2020-10-08] MEDS: oxyCODONE/ACETAMINOPHEN 5mg/325mg TAB PO PRN (07:33)
[2020-10-08] MEDS ORDERED: bisacodyL 10 MG SUPP PR PRN (08:00)
--- NOTE | 2020-10-08 08:08 | Orthopedic Progress Note ---
Date of Service October 08, 2020 Assessment & Plan (1) Status post spinal surgery: d/c home today will monitor voice hoarseness in follow-up outpatient Admission and Anticipated Discharge Date Admission Date: October 06, 2020 Subjective no new numbness/weakness improved strength left upper extremity continued hoarseness of voice. no change no dysphagia. Drinking well/eating well pain well-controlled resolved radiation of pain to the left hand and left shoulder Glucose 108 this AM Physical Exam Physical Exam: vitals: see vital signs section; on room air this am neck: soft, non-distended dressing: mild serosang discharge drain: removed yesterday vascular: no calf tenderness or swelling bilaterally. no signs of DVT neuro: motor right upper and lower extremity C5-T1, L2-S1 5/5 motor left C5 3/5 C6 4/5 C7 4+/5 (pain-inhibited) C8 4+/5 (pain-inhibited) T1 4+/5 (pain-inhibited) L2 5/5 L3 5/5 L4 5/5 L5 5/5 S1 5/5 2/2 sensation to light touch bilateral C5-T1, L2-S1 except left C6 1/2. Results & Data ([facility]) Vital Signs (Past 12 Hours) Vital Signs Temp Pulse Resp BP Pulse Ox 10/08/20 07:31 102 H 15 98 10/08/20 07:00 36.8 C 95 H 17 137/89 100 10/08/20 03:16 98 H 18 94 10/07/20 22:42 36.9 C 91 H 18 132/87 95 10/07/20 22:08 89 14 99 PG Care Time/CCT Total # of Minutes Spent Total Time Spent with Patient: Total time spent is greater than 50% in coordination of care (as documented) at patient's floor/unit and/or counseling patient: Coding Level of Care Code None Diagnoses Status post spinal surgery Z98.890
--- NOTE | 2020-10-08 08:11 | Discharge Summary ---
Date of Service October 08, 2020 Principal Diagnosis Cervical radiculopathy Discharge Data Allergies Allergy/AdvReac Type Severity Reaction Status Date / Time latex Allergy Mild Rash Verified 10/06/20 06:07 Iodinated Contrast Media AdvReac Severe Hives, Verified 10/06/20 06:07 tongue swelling adhesive AdvReac Mild Rash Verified 10/06/20 06:07 GOLD AdvReac Mild Rash Uncoded 10/02/20 10:15 Consultations 10/06/20 14:56 Consult Hospitalist Routine Procedures Performed Operation Date: 10/06/20 07:30 Actual Procedures p Anterior Cervical Discectomy Fusion C4-C5, C5-C6, Autograft, Allograft, Spinal Cord Monitoring(Not Applicable) - Minal Hall MD Hospital Course (1) Status post spinal surgery: Patient underwent the above mentioned procedure. There were no complications noted intra-op. Post-operatively, patient was sent to recovery and then floor. Pain was well-controlled throughout stay. Drain was removed on post- op day 1. Patient was followed closely by hospitalist service throughout stay and was cleared for discharge medically by this team. She regained strength in her left upper extremity and had resolution of her radicular pain to her lateral shoulder and hand at time of discharge. She was noted to have hoarseness of her voice during the hospital stay, and this will be monitored as outpatient. Patient was able to ambulate, void, and tolerate PO intake at time of discharge. Verbal discharge and follow-up instructions were given. Total Time Total Time Spent Total Time Spent (In Minutes): 25 Discharge Plan Discharge Items Patient Disposition: Home - Self-Care Reason For Visit: Cervical Radiculopathy Discharge Diagnosis: Cervical radiculopathy Activity: Per Instructions section Non-emergency contact: Surgeon Call non-emergency contact if: you have any medication questions Follow-up/Referrals: Zaki Palmer [Primary Care Provider] - Diet: Regular Addtl Attending Provider Instructions: Anterior Cervical Decompression Fusion (ACDF) Recovery What to expect You've had surgery, the first step toward the goals of decreasing neck and/or arm pain, and stopping symptoms of spinal cord compression from getting worse. Now it's time to focus on healing. By following these tips, you will set yourself up for a successful outcome after surgery. Top 4 things to know 1. Pain in the back of the neck and between the shoulder blades is common after ACDF surgery. It also is normal to have some swallowing difficulty. These usua lly get better over the next few weeks. If you have trouble breathing, call 911 or go to an emergency room immediately. 2. Do not use nicotine for at least three months. Nicotine will slow down your healing. 3. Avoid taking anti-inflammatory medications (NSAIDs) for six to 12 weeks or until your surgeon tells you it's safe to use them. NSAIDs include ibuprofen (Motrin, Advib), naproxen (Aleve, Naprosyn), meloxicam (Mobic), Celebrex and diclofenac. 4. In some cases, you do not need a collar after surgery. If your surgeon gave you one, you should wear it as directed until your first follow-up appointment. Avoid excessive bending and twisting of your neck after surgery. Your surgeon will decide when your collar can come off. Breathing If you have any trouble breathing or have excessive swelling in your neck, call 911 or go to an emergency room immediately. Pain and weakness Neck pain, pain between the shoulder blades and a funny feeling when you swallow are normal after ACDF. These should get better over the next few weeks. Numbness, tingling and weakness that you had before surgery may take time to improve. Your collar If you were given a collar to wear, the goal of it is to keep your chin up and away from your chest. Your chin needs to be on top of the collar, not down in the collar. Wear your collar until your first follow-up appointment after surgery. You may take the collar off to shower. While the collar is off, keep your head as still as possible and your chin up. Taking care of your incision You can take your dressing off when you get home from the hospital. Underneath the dressing you will have adhesive wound closures (Steri-strips) over your incision when you come home from the hospital. These will fall off on their own within 14 days. If they have not fallen off after 14 days, you can remove them. If your incision has no drainage, it can be left uncovered after three days. Showering You can take a shower three days after surgery. Take your collar off while in the shower. Avoid taking tub baths, swimming and going in hot tubs until the incision is completely healed (four to six weeks). Taking medication Do not take anti-inflammatory medications (NSAIDS) for at least three months after surgery. These drugs can interfere with how you heal. NSAIDs include ibuprofen, Advil, Aleve, naproxen, Naprosyn, Mobic, meloxicam, Celebrex, diclofenac. If you need refills on your prescriptions, contact our office at least two days before you are out of pills so we have sufficient time to process your request. Refill requests on Tuesday afternoons and holidays likely will be addressed on the next day. Start weaning yourself from pain medications as soon as you are able. Remember, pain is a natural part of the healing process. The goal is not to eliminate all pain but to keep you comfortable as you heal. Pain medications should be used only for a short period of time. Before taking Tylenol (acetaminophen), be aware that your pain medication probably has acetaminophen in it. Taking additional Tylenol or acetaminophen can put you over the daily recommended 3,000 milligrams, which can harm your liver. If you are taking a muscle relaxer, one of the side effects is drowsiness. If you feel too drowsy to safely get up and move around, take the muscle relaxer less often. Do not use tobacco products If you had been a smoker or used tobacco, you were required to stop before surgery You've come this far, so why not quit for good. If you cannot do so, you must not use tobacco products for at least three months. Nicotine will keep you from properly healing If you have any other concerns, call our office at: before going to an emergency room. In most cases we can help you or get you an appointment quickly Be active, but no lifting We want you to be active as soon as you get home from the hospital. Get up and walk often. If you go up and down stairs, make sure you hold onto the railing and have someone with you. Avoid bending and twisting your neck as much as you can, and do not lift anything over 10 pounds until your surgeon says it's OK. And no driving You cannot drive until you are no longer taking narcotic pain medications or muscle relaxers and you can move well enough to be safe behind the wheel. Most patients can begin driving after the 6 week postoperative appointment. Your surgeon will let you know when you can start driving Eating Ice and Popsicles can help relieve a sore throat. Eat soft foods that are easy to swallow. Take small bites and chew your food well. You can begin eating other foods gradually as you start to feel better. Constipation and bloating Constipation is a common side effect of taking narcotic pain medication and a good reason to begin tapering yourself off of pain medication as soon as you can. Drink lots of fluids, be active and eat foods high in fiber to help relieve constipation If constipation is bothering you, a stool softener or laxative may help. Try one of the following, and always follow the instructions: Milk of Magnesia, MiraLAX, Dulcolax suppository. Fleet enema, magnesium citrate. When is it an emergency? If you have any of the following symptoms, call 911 or go to an emergency room right away: Trouble breathing Chest pain Excessive neck swelling Significant new weakness since your surgery If you have any other concern, call our office at [phone] before going to an emergency room. In most cases we can help you or get you an appointment quickly. Pending Studies at Discharge: No Stand-Alone Forms: My [facility] Medications and DC Order Prescriptions: New cyclobenzaprine 10 mg Tablet 10 mg PO Q8 Qty: 42 RF: 0 oxycodone-acetaminophen [Percocet] 5-325 mg Tablet 1 - 2 tab PO Q4H PRN (Reason: pain) Qty: 30 RF: 0 gabapentin 300 mg Capsule 300 mg PO BID Qty: 28 RF: 0 oxycodone-acetaminophen [Percocet] 5-325 mg tablet 1 tab PO Q4H Qty: 20 RF: 0 Continued albuterol sulfate 90 mcg/actuation aerosol powdr breath activated 2 inh inhalation Q6H PRN (Reason: SHORT OF BREATH) RF: 0 esomeprazole magnesium 40 mg capsule,delayed release(DR/EC) 40 mg PO QAM RF: 0 montelukast [Singulair] 10 mg tablet 10 mg PO QAM RF: 0 cholecalciferol (vitamin D3) 50 mcg (2,000 unit) tablet 50 mcg PO TID RF: 0 venlafaxine [Effexor XR] 75 mg capsule,extended release 24hr 75 mg PO QAM RF: 0 clindamycin phosphate 1 % gel 1 applic topical BID RF: 0 multivitamin Tablet 1 tab PO QAM RF: 0 venlafaxine [Effexor XR] 75 mg Capsule,Extended Release 24hr 75 mg PO QAM RF: 0 Discontinued oxycodone-acetaminophen [Percocet] 5-325 mg tablet 1 tab PO Q4H PRN (Reason: pain) Qty: 15 RF: 0 trazodone 100 mg Tablet 50 - 100 mg PO HS RF: 0 Discharge Orders: Discharge Order (Routine); Ordered 10/08/20 Ordered By: Minal Hall Admission Data Admit Date/Time: 10/06/20 12:58 Attending Provider: Minal Hall Admit Provider: Minal Hall Primary Care Provider: Zaki Palmer Other Providers: Abebe Solorzano ; Laurence Hilario ; Venkata Escoto ; George Spear ; Sergio John ; Tom Blue ; Alfred Hill ; Lauren Anthony ; Dolores Stacy ; Kellee Obregon ; Shasha Maurice ; Kwasi Tavarez ; Primitivo Willett ; Black [place] ; Angel Meade ; Tamia Carr ; Omar Trujillo ; Venkata Bernal ; Paramjit Galvan ; Sue Mack ; Blake Navarro ; Kellee Major ; Terrell Velez Coding Level of Care Code D/C Day Management <30 mins Diagnoses Status post spinal surgery Z98.890 Time Spent (min) 25
[2020-10-08] MEDS: CHOLECALCIFEROL 1,000 UNITS 25 MCG TAB PO SCH (08:17)
[2020-10-08] MEDS: GABAPENTIN 300 MG CAP PO SCH (08:17)
[2020-10-08] MEDS: MONTELUKAST SODIUM 10 MG TABLET PO SCH (08:17)
[2020-10-08] MEDS: MULTIVITAMIN TAB PO SCH (08:17)
[2020-10-08] MEDS: VENLAFAXINE HCL XR 75 MG CAPXR PO SCH (08:17)
[2020-10-08] MEDS: PANTOprazole 40 MG TAB PO SCH (08:17)
--- NOTE | 2020-10-08 10:53 | Neurology Consultation ---
Date of Consultation October 08, 2020 Assessment & Plan (1) Degenerative disc disease, cervical: (2) Left cervical radiculopathy: (3) Status post spinal surgery: (4) Blurry vision, bilateral: This patient had moderate spinal stenosis from disc in bone with a left C6 radiculopathy, now much improved in the left upper extremity post decompression and fusion C4-5 and C5-6 on October 06. Although she has considerable neck pain from the surgery she does not have any other focal neurologic deficits. She does not show any signs of obvious myelopathy but the cord might have been irritated giving her some balance issues and a brisk quadriceps reflexes. Postoperatively, this should get better with time. She notices some blurry vision with very fine print. Her visual acuity is actually quite normal and she can read test phrases with her glasses that I gave her and small print on the tPA across the room. She has no diplopia or other issues that would suggest an acute neurologic event. I suspect that the blurry vision is due to gabapentin (which can do this). Percocet and cyclobenzaprine could add to blurry vision and fatigue as well. Therefore, I do not believe this represents a stroke or any other acute neurologic problem. Recommendations: 1. There is no need for neurologic testing at this time. 2. Caution with increasing gabapentin and using pain medicines. Follow blurry vision and call if worse. 3. There is no reason the patient cannot be discharged today from a neurologic standpoint. 4. I can follow up as an outpatient, if needed Overall, I spent a total of 60 minutes with this case including review of records, review of MRI films, direct evaluation of the patient at bedside, and discussion of the case with the patient at bedside, RN at bedside, and Dr. Hall including differential diagnosis and treatment options. History of Present Illness Reason for Consultation: Patient is a 45 year old, who I was asked to see by Dr. Hall, regarding acute blurry vision. Requesting Physician: Dr. Hall Attending Physician: Minal Hall MD History of Present Illness The patient had the relatively acute onset of left-sided neck pain about 3 weeks ago. She had no precipitating injury or event. She then noticed pain radiating down the left upper extremity 1st to her lateral 3 fingers and then to her thumb and index finger exclusively. She had numbness and tingling in her index finger and thumb as well on the left. Her neck hurt and she had limited function of that extremity. She complained of some balance issues. She had tried prednisone, oxycodone, naproxen, Flexeril, but her problem was getting worse over time. The pain was quite severe and she went to the emergency room on October 01. A radiculopathy was diagnosed and and MRI of the cervical spine showed moderate spinal stenosis at C4-5 and C5-6 due to disc and bone. She had no lower extremity symptoms or incontinence of urine. She saw Dr. Hall October 02. It was decided that surgical correction was needed. She was admitted to the hospital and on October 06 she underwent anterior cervical diskectomy and fusion ( ACDF C4-5, C5-6, local autograft, allograft). On October 07 she did well except for right-sided neck pain and pain in general in her neck and upper chest. Left upper extremity was immediately improved post surgery and she has no pain or numbness in that extremity currently. She is not sure if she had blurry vision on October 07 because she did not use her phone at that time. This morning, October 08, she felt that looking at her I phone was difficult because of some blurry vision. She did not have double vision or loss of visi on. She had no headache, dizziness, weakness, or numbness. She had no speech or mentation problems. When she looked at the television and around the room she had no blurry vision and could read things on the TV. Since her surgery she was initiated on gabapentin 300 milligrams twice a day which she has had 4 doses. She has had 6 doses of 10 milligrams cyclobenzaprine since surgery and 5 doses of Percocet. She has also had scopolamine patch behind her ear and Ativan once. Allergies Allergy/AdvReac Type Severity Reaction Status Date / Time latex Allergy Mild Rash Verified 10/06/20 06:07 Iodinated Contrast Media AdvReac Severe Hives, Verified 10/06/20 06:07 tongue swelling adhesive AdvReac Mild Rash Verified 10/06/20 06:07 GOLD AdvReac Mild Rash Uncoded 10/02/20 10:15 Home Medications Medication Instructions Recorded Confirmed Type albuterol sulfate 90 mcg/actuation 2 inh INHALATION Q6H PRN 10/02/20 10/06/20 History breath activated powder inhaler cholecalciferol (vitamin D3) 50 50 mcg PO TID 10/02/20 10/06/20 History mcg (2,000 unit) tablet clindamycin phosphate 1 % topical 1 applic TOPICAL BID 10/02/20 10/06/20 History gel esomeprazole magnesium 40 mg 40 mg PO QAM 10/02/20 10/06/20 History capsule,delayed release montelukast 10 mg tablet 10 mg PO QAM 10/02/20 10/06/20 History multivitamin 1 tab PO QAM 10/02/20 10/06/20 History venlafaxine 75 mg capsule,extended 75 mg PO QAM 10/02/20 10/02/20 History release 24 hr venlafaxine [Effexor XR] 75 mg PO QAM 10/06/20 10/06/20 History cyclobenzaprine 10 mg PO Q8 #42 tab 10/07/20 Rx gabapentin 300 mg PO BID #28 cap 10/07/20 Rx oxycodone-acetaminophen [Percocet] 1 - 2 tab PO Q4H PRN #30 tab 10/07/20 Rx oxycodone-acetaminophen [Percocet] 1 tab PO Q4H #20 tab 10/07/20 Rx Patient History Medical History Anxiety Asthma Bladder prolapse GERD (gastroesophageal reflux disease) Herniated cervical disc History of kidney stones Hx of endometriosis Migraine Restless leg syndrome Seasonal allergies Temporomandibular joint disorder Jaw locking x1 episode (after dental appt) Surgical History History of colonoscopy History of cystoscopy History of dilatation and curettage Multiple History of esophagogastroduodenoscopy (EGD) History of hysterectomy History of laparoscopy History of lithotripsy History of sinus surgery x3 Pr[place] teeth removed Family History (Updated 10/08/20 @ 10:43 by Jesus Adams MD) Mother , age 49 of a stroke Stroke Other No family history of adverse response to anesthesia Social History Smoking Status: Former smoker Tobacco Type: Cigarettes Smoking End Date: Quit 7 years ago; Number of Years Since Quit: 8; Second Hand Exposure: Yes; Do You Dip or Chew Tobacco: No; Tobacco Cessation Education Requested by Patient: No Hx Alcohol Use: No Hx Substance Use: No Preferred Language: Mozambican Communication Ability: Effective Jukebox Routeman Required: No Beliefs That Will Affect Care: None marital status: Current Living Situation: Family current occupational status: employed Feels Safe at Home: Yes Safety Concerns: Feels Safe At This Time Assistive Devices: Brace/Splint/Immobilizer, Glasses and Walker Review of Systems Constitutional: + fatigue; no fever and no weakness Eyes: + worsening vision; no diplopia and no eye pain Ear, Nose, Mouth, Throat: + tinnitus and + hearing loss; no ear pain, no dizziness, no snoring, no hoarseness and no dysphagia patient wears hearing aids for the last 10 years and has tinnitus. 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 ) Respiratory: no cough and no dyspnea Cardiovascular: no chest pain, no palpitations and no lightheadedness Gastrointestinal: no abdominal pain, no nausea and no vomiting Genitourinary: no dysuria, no urinary frequency and no urinary incontinence Musculoskeletal: + neck pain; no back pain, no radicular pain, no joint pain and no myalgia Integumentary: no rash and no lesions Neurologic: no gait abnormality, no localized weakness, no generalized weakness, no tingling, no numbness, no tremor(s), no abnormal movements, no headache(s), no abnormal speech, no confusion and no memory loss Psychiatric: no depression, no irritability, no anxiety, no difficulty concentrating, no confusion and no hallucinations Endocrine: no fatigue and no flushing Hematologic / Lymphatic: no easy bleeding and no easy bruising Allergy / Immunological: no urticaria and no problem reported Exam (Neuro) Physical Exam: The patient is right-handed. The patient is awake, alert, and attentive. Speech is normal without any aphasia or dysarthria. She can name objects, repeat phrases, and has normal spontaneous speech. Mentation and thought processes are intact, with orientation to person, place and time, and normal fund of knowledge. Attention and concentration are normal. Mood and affect are normal and appropriate. General appearance and grooming are normal. Short and long-term memory are intact. The discs are sharp with positive venous pulsations bilaterally. There are no exudates, hemorrhages, or blood vessel changes seen. Pupils are 4 mm bilaterally and reactive to light. Extraocular eye muscles are intact without nystagmus. Visual acuity and visual vazquez seem normal grossly to confrontation. the patient can read test sentences normally. She can read the TV from across the room even the small print. It is the very tiny iphone print that looks a bit blurry to her. There are no deficits to sensation in the face in all 3 distributions of the fifth cranial nerve bilaterally. Corneal reflexes are positive bilaterally. Facial strength and symmetry was normal bilaterally. Hearing seems normal to whisper and finger rub bilaterally. Palate moves well without asymmetry. There is normal trapezius (shoulder shrug) strength bilaterally. Sternocleidomastoid strength was not tested due to her neck brace present.Tongue is midline with good strength bilaterally. Heart is without murmur. There is a regular rhythm and rate. Thoracic and lumbar spine are nontender to palpation. The cervical spine could not be evaluated because of a rigid neck brace. Gait is narrow based, with good arm swing, turns, and stance. She is slightly hesitant with walking it looks normal. With outstretched arms there is no drift. There are no resting, postural, or action tremors. There is no ataxia with finger to nose testing. There is good facility in the hands. No other abnormal involuntary movements are noted. Motor strength is 5/5 diffusely in the arms bilaterally including deltoids, biceps, triceps, brachioradialis, wrist flexors and extensors, linker up, and intrinsic hand muscles. Motor strength is 5/5 diffusely in the legs bilaterally including hip flexors, quadriceps, hamstrings, gastrocnemius, tibialis anterior, tibialis posterior, and Peroneii muscles. Toe extensors are normal and there is good bulk in the extensor digitorum brevis muscles bilaterally. The limbs have good tone without rigidity or spasticity. There is no atrophy noted in the muscles. Muscle bulk is normal, there is no tenderness to palpati on, no myotonia to percussion, and no fasciculations seen. Sensory examination is intact to touch and pin throughout all 4 limbs diffusely. Reflexes are 2/4 in the biceps, triceps, brachioradialis,and Achilles tendons bilaterally. Quadriceps tendon reflexes were 3/4 Bilaterally. There is no clonus bilaterally. Toes are downgoing with plantar stimulation bilaterally. Peripheral pulses are present and of normal quality distally in all 4 limbs. There is no peripheral edema noted in the limbs. Results & Data ([facility]) Vital Signs (Past 12 Hours) Vital Signs Temp Pulse Resp BP Pulse Ox 10/08/20 08:41 36.8 C 102 H 15 137/89 98 10/08/20 07:31 102 H 15 98 10/08/20 07:00 36.8 C 95 H 17 137/89 100 10/08/20 03:16 98 H 18 94 10/07/20 22:42 36.9 C 91 H 18 132/87 95 PG Care Time/CCT Total # of Minutes Spent Total Time Spent with Patient: Total time spent is greater than 50% in coordination of care (as documented) at patient's floor/unit and/or counseling patient: Coding Level of Care Code 35321 Inpt Consult Level 5 Diagnoses Degenerative disc disease, cervical M50.30 Left cervical radiculopathy M54.12 Status post spinal surgery Z98.890 Blurry vision, bilateral H53.8 Time Spent (min) 60
--- NOTE | 2020-10-08 10:55 | Communication Note ---
Date of Service: October 08, 2020 Called re: patient having blurred vision this AM. Noted by PT upon handing patient instruction sheets to review. Patient denies any new neurological symptoms otherwise Neurology consulted, patient seen by Dr. Adams and blurred vision believed to be medication-induced neuro exam: pupils equal and reactive EOM eyes no abnormalities noted CN VII, IX, X, XI normal on exam motor and sensory exam x 4 extremities unchanged since this AM as below: motor right upper and lower extremity C5-T1, L2-S1 5/5 motor left C5 3/5 C6 4/5 C7 4+/5 (pain-inhibited) C8 4+/5 (pain-inhibited) T1 4+/5 (pain-inhibited) L2 5/5 L3 5/5 L4 5/5 L5 5/5 S1 5/5 2/2 sensation to light touch bilateral C5-T1, L2-S1 except left C6 1/2. Plan: given clearance by neurology, patient is ok for discharge. Patient aware of symptoms warranting an urgent visit to ER. I will follow-up with patient in 2 weeks as previously planned.
--- NOTE | 2020-10-09 12:30 | Operative Report ---
[facility] Post Operative Report Pre & Post Diagnosis Operation Date: 10/06/20 07:30 Pre-Op Diagnosis: Cervical Radiculopathy left C5 and C6 Post-Op Diagnosis: Cervical Radiculopathy left C5 and C6 I identified the patient and participated in the time-out.: Yes Procedure 1. Anterior Cervical Discectomy and Fusion C4-5, C5-6 2. Anterior Cervical Instrumentation same levels 3. Anterior Interbody Device same levels 4. Local Autograft for anterior cervical fusion 5. Allograft, morselized (DBM) Surgeon Minal Hall MD Private Security Guard Primitivo Contreras PA-C Estimated Blood Loss 25 Findings Consistent with Post-Op Diagnosis Specimens none Description of Procedure Implants: 1. K2M [place] Cervical Interbody - 7deg, C4-5 - 13x16, 6mm C5-6 - 13x16, 6mm 2. K2M [place] anterior cervical plate 34mm with 4.0x14mm screws (x6) 3. Medtronic Roseanne DBM Drains: 1. DENNIS drain x 1 (10 Estonian) Indications: Patient is a 45 year old lady who was referred to me by the ER and seen in clinic next day on October 02 with severe cervical radiculopathy affecting the left upper extremity with disabling motor defect affecting her deltoid and wrist extension function for the last 2.5 weeks. Imaging was consistent with a diagnosis of left C5 and C6 radiculopathy. Given the profound functional weakness of the left upper extremity, a discussion was had with her with regards to surgical management of her issues. Informed consent was obtained and patient was booked for above procedure. On day of surgery, patient was identified in pre-op holding area. History and Physical was updated, surgical site was marked, and consent was confirmed. Risks, benefits and alternatives were discussed again and I answered all their questions. Description of procedure: Patient was brought to the operating room and underwent general anesthesia. Patient was placed supine on the operating table with neck in gentle extension. Face, eyes, bony prominences, and peripheral nerves were well protected. SCDs were applied to bilateral legs to reduce risk of DVT. Shoulders were gently taped inferiorly in order to assist with imaging. Anterior cervical region was prepped and draped in standard fashion. A time-out was performed and documented. This included confirmation of administration of prophylactic antibiotics prior to incision. Anterior Zambrano-Valente type approach was made on the right side. The carotid artery was palpated and retracted laterally. The anterior cervical spine was visualized and a localization needle was placed in a visualized disc spaces and checked with lateral portable x-ray. A repeat film with a more proximal needle placement was needed. This confirmed the C4-5 level. The longus coli was elevated bilaterally and a self retaining retractor placed. Anterior osteophytes were removed and saved for local autograft. Anterior discectomy was performed with disc knife, ronguers, and currettes. This was st arted at the most distal level. [place] type distraction pins were placed into the vertebral body above and below each of the discs sequentially. Gentle distraction was applied. Posterior discectomy with decompression of the central spinal cord and bilateral foraminal areas was performed with high speed judy, curettes, and ronguers. This included the takedown of PLL for assessment of any disc protrusion more posteriorly. Once the decompression was judged to be adequate, attention was turned to the preparation of the interspace for fusion. A judy and currettes were used to prepare endplates for fusion with flat, bleeding surfaces. Most distal England pin was removed and pin hole filled with bone wax. [place] pins were then moved to the proximal adjacent level. These steps were repeated for more proximal levels sequentially. Once all levels were prepared, remaining [place] pins were removed and a trial sizer was used to size the interbody device for the most inferior level. The interbody device was packed with local bone and DBM allograft. The interbody device was placed in the interspace. This was repeated from distal to proximal for all levels affected. An appropriate size anterior cervical plate was selected and bent to match patient anatomy. A temporizing pin was used distally and proximally, and screw hole placement was confirmed to be appropriate proximally. The plate was then secured with two screws into the most proximal vertebral body. Based on pre-op and intra-op templating, 16mm screws were selected and inserted in the C4 vertebra. However, these were felt to be in close proximity of the posterior vertebral cortex after x-ray imaging and exchanged for 14mm screws. The remaining screw holes were then filled with 14mm screws. Each screw hole was pre-drilled prior to insertion of the screws. The self retaining retractor was removed and the wound checked for hemostasis. Lateral portable x-ray imaging confirmed the correct surgical level and implant positions within extent permitted by patient habitus. The wound was irrigated. There was good hemostasis. A DENNIS drain was inserted below the incision. The platysma layer was closed with 2-0 vicryl and the skin with 3-0 monocryl. Steristrips, and a sterile dressing were applied. The patient was awakened and taken to the recovery room in stable condition. Neuromonitoring was performed throughout the case using SSEP, MEP, EMG and vocal cord monitoring. No changes to pre-op neuromonitoring findings were noted during the case. There were no intraoperative complications noted. Sponge and needle counts were correct x2 at the conclusion of the case. I attest to the content of the Intraoperative Record and any orders documented therein. Any exceptions are noted below.
== END 2020-10-08 11:23 | disposition home or self-care (01) | DRG 30 ==
LOC: ASU 05:59 → 3E 12:58